=== PATIENT | male | born 1995 | race Caucasian/White ===

== ENCOUNTER 2018-04-06 22:58 | Emergency (ER) | payer BC ==
[~2018-04-06] VITALS: Ht 185.4 cm; Wt 51.5 kg
[2018-04-06 23:04] VITALS: TEMP 36.7; Ht 185.4 cm; Wt 51.5 kg
[2018-04-06] MEDS ORDERED: LIDOCAINE 1% BUFFERED INJ 5 ML VIAL ONE ×2 (23:11→23:18)
[2018-04-07 00:04] VITALS: BP 110/71; PULSE 90; O2SAT 97
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
== END 2018-04-07 00:08 | disposition home or self-care (01) ==
LOC: C.EDB 23:00 → C.EDC 04-07 00:08
DX: S81.811A Laceration without foreign body, right lower leg, initial encounter (principal); W45.8XXA Other foreign body or object entering through skin, initial encounter; J45.909 Unspecified asthma, uncomplicated; Z87.01 Personal history of pneumonia (recurrent); Z82.49 Family history of ischemic heart disease and other diseases of the circulatory system; Z82.0 Family history of epilepsy and other diseases of the nervous system